=== PATIENT | female | born 1975 | race Caucasian/White ===

== ENCOUNTER 2020-06-19 11:44 | Outpatient (CLI) | payer BC ==
--- NOTE | 2020-06-19 12:04 | RAD ---
EXAM: XR Abdomen 1 View/KUB PROVIDED CLINICAL HISTORY: Nephrolithiasis. Left-sided pain COMPARISON: None FINDINGS: Renal shadows are mostly obscured due to overlying bowel gas as well as retained fecal material withi n the hepatic flexure and transverse colon. No suspicious calcifications seen overlying the expected location of the renal collecting systems or along the course of either ureter. Phleboliths o verlie the right hemipelvis. Moderate amount of retained fecal material is seen throughout the colon. Punctate increased density f oci are seen in the colon likely due to ingested material. Osseous structures have a normal appearance IMPRESSION: 1. Evidence of constipation. 2. No definitive suspicious calcifications are seen overlying the renal collecting systems to suggest nephrolithiasis based on this exam. However, the renal shadows are mostly obscured.
== END 2020-06-19 11:45 | disposition home or self-care (01) ==
LOC: NAV RAD 11:44
PROVIDERS: ATTEND Family Medicine
DX: N20.0 Calculus of kidney (principal); K59.00 Constipation, unspecified
CPT/HCPCS: 74018